=== PATIENT | male | born 1995 | race Caucasian/White ===

== ENCOUNTER 2024-07-01 20:10 | Emergency (ER) | payer MEDICAID ==
[~2024-07-01] VITALS: Ht 180.3 cm; Wt 125.0 kg
[2024-07-01 20:24] VITALS: TEMP 98.4
[2024-07-01 21:10] VITALS: BP 125/86; PULSE 92; RESP 18; O2SAT 99
[2024-07-01 21:10] LABS: BASOPHILS % (AUTO) 0.2 % (0.0-2.0); EOSINOPHILS % (AUTO) 2.1 % (1.0-6.0); HEMATOCRIT 42.7 % (41-53); HEMOGLOBIN 14.1 g/dL (13.5-17.5); LYMPHOCYTES # (AUTO) 1.4 K/uL (1.0-4.8); LYMPHOCYTES % (AUTO) 26.6 % (22.0-44.0); MEAN CORPUSCULAR HEMOGLOBIN 28.4 pg (26.0-34.0); MEAN CORPUSCULAR VOLUME 86 fL (80-100); MONOCYTES # (AUTO) 0.5 K/uL (0.1-1.0); MONOCYTES % (AUTO) 8.8 % (2.0-9.0); NEUTROPHILS # (AUTO) 3.2 K/uL (1.8-7.7); NEUTROPHILS % (AUTO) 62.3 % (40.0-70.0); PLATELET COUNT (AUTO) 215 K/uL (150-450); RED BLOOD CELL COUNT(AUTO) 4.97 MIL/uL (4.50-5.90); RED CELL DISTRIBUTION WIDTH 14.2 % (11.5-14.5); WHITE BLOOD COUNT (AUTO) 5.2 K/uL (4.5-11.0)
[2024-07-01 21:30] LABS: ANION GAP 7 mmol/L (8-16); CALCIUM, TOTAL 9.2 mg/dL (8.8-10.5); CARBON DIOXIDE 30 mmol/L (22-29); CHLORIDE 101 mmol/L (98-107); CREATININE 1.25 mg/dL (0.60-1.30); GLOMERULAR FILTR. RATE CALC > 60 mL/min (>60); GLUCOSE,RANDOM 99 mg/dL (70-110); SODIUM SERUM 138 mmol/L (136-145); TROPONIN I-HIGH SENSITIVITY 7 ng/L (<76); UREA NITROGEN, BLOOD 11 mg/dL (7-18)
[2024-07-01 21:32] LABS: POTASSIUM 2.9 mmol/L (3.5-5.1)
[2024-07-01] MEDS ORDERED: MELA5TAB40 PO (22:13)
[2024-07-01] MEDS ORDERED: DIPH50CA37 PO (22:13)
[2024-07-01] MEDS: DiphenhydrAMINE HCL 25 MG CAPSULE PO ONE (22:22)
[2024-07-01] MEDS: POTASSIUM CHLORIDE 20 MEQ ER TABLET PO ONE (22:23)
== END 2024-07-01 22:26 | disposition home or self-care (01) ==
LOC: EMS 20:14
DX: R07.89 Other chest pain (principal); F43.9 Reaction to severe stress, unspecified; E87.6 Hypokalemia; R42 Dizziness and giddiness; F17.210 Nicotine dependence, cigarettes, uncomplicated
CPT/HCPCS: 71045; 80048; 83880; 84484; 85025; 93005; 99285; 36415-L1; 36415-TC